=== PATIENT | male | born 1970 | race Caucasian/White ===

== ENCOUNTER 2023-02-06 07:12 | Outpatient (CLI) | payer OTHER ==
[~2023-02-06] VITALS: Ht 170.2 cm; Wt 86.2 kg
== END 2023-02-06 07:25 | disposition home or self-care (01) ==
LOC: LAB 07:12
PROVIDERS: ATTEND Surgery
DX: Z01.818 Encounter for other preprocedural examination (principal); K40.90 Unilateral inguinal hernia, without obstruction or gangrene, not specified as recurrent

== ENCOUNTER 2023-02-15 05:40 | Day surgery (SDC) | payer OTHER ==
[~2023-02-15] VITALS: Ht 170.2 cm; Wt 86.2 kg
[2023-02-15] MEDS ORDERED: POLY119PG PO (09:44)
[2023-02-15] MEDS ORDERED: NEURONTIN300 MG PO (09:44)
[2023-02-15] MEDS ORDERED: PERCOCET 5-3251 EACH PO (09:44)
== END 2023-02-15 12:05 | disposition home or self-care (01) ==
LOC: CIR.AMB 05:40
PROVIDERS: ATTEND Surgery
DX: K40.90 Unilateral inguinal hernia, without obstruction or gangrene, not specified as recurrent (principal); Z20.822 Contact with and (suspected) exposure to COVID-19
CPT/HCPCS: 49650; C1781